=== PATIENT | male | born 1970 | race Caucasian/White ===

== ENCOUNTER → 2019-04-17 | Outpatient (CLI) | payer BC ==
--- NOTE | 2019-04-18 07:32 | XR ---
EXAMINATION TYPE: XR lumbosacral spine min 4V DATE OF EXAM: 04/17/2019 CLINICAL HISTORY: Back pain TECHNIQUE: Frontal , oblique and and lateral images of the lumbar spine are obtained. COMPARISON: None FINDINGS: There are 5 lumbar type vertebral bodies identified. The lumbar spine shows satisfactory vertebral body height. Mild retrolisthesis is seen of L5 on S1. Intervertebral disc space narrowing i s present at L4-L5 and L5-S1. Facet arthropathy from L3 through S1. No vertebral body height loss is seen of the lumbar spine. Oblique images demonstrate no gross evidence of pars interarticularis defec t nor radiographic neural foraminal narrowing.. The overlying soft tissue appears unremarkable. IMPRESSION: No acute fracture is seen in the lumbar spine. Moderate multilevel degenerative changes of the lower lumbar spine with mild retrolisthesis of L5 on S1, likely on a degenerative basis.
--- NOTE | 2019-04-18 07:54 | XR ---
EXAMINATION TYPE: XR thoracic spine complete DATE OF EXAM: 04/17/2019 CLINICAL HISTORY: Fall with mid back pain. TECHNIQUE: Frontal, lateral, and swimmer's view of thoracic spine are obtained. COMPARISON: None. FINDINGS: Thoracic spine show satisfactory alignment without evidence of acute fracture or dislocatio n. Few very small anterior osteophytes are seen. Very minimal rightward curvature of the thoracolumba r junction. This may be positional. Right hemidiaphragm elevation is partially visualized. Vertebral body heights and disc space heights are preserved. Visualized ribs are unremarkable. IMPRESSION: No acute fracture or malalignment is seen in the thoracic spine.
--- NOTE | 2019-04-18 07:56 | XR ---
EXAMINATION TYPE: XR ribs LT w pa chest xray DATE OF EXAM: 04/17/2019 CLINICAL HISTORY: Left rib pain after a fall. TECHNIQUE: Single frontal view of the chest is obtained. 2 views of the left ribs were also obtained. COMPARISON: None FINDINGS: Acute minimally displaced fractures of the lateral origins of ribs 9 and 10 on the left are seen. No additional acute displaced fracture is appreciated. No callused healed rib fracture deformi ty. There is no focal air space opacity, pleural effusion, or pneumothorax seen. The cardiac silhoue tte size is within normal limits. IMPRESSION: 1. Acute minimally displaced rib fractures of the lateral 9 and 10 on the left. 2. No acute cardiopulmonary process.
== END | disposition home or self-care (01) ==
LOC: RADXRYALE 16:56
PROVIDERS: ATTEND Internal Medicine
DX: M47.816 Spondylosis without myelopathy or radiculopathy, lumbar region (principal); M43.16 Spondylolisthesis, lumbar region; R07.81 Pleurodynia
CPT/HCPCS: 72072; 72110